=== PATIENT | male | born 1975 | race Caucasian/White ===

== ENCOUNTER 2021-03-28 10:32 | Emergency (ER) | payer MEDICAID, SELFPAY ==
--- NOTE | ~2021-03-28 | XR_ITS ---
EXAMINATION: BILATERAL FOOT X-RAY CLINICAL INFORMATION: Bilateral foot pain and discoloration. History of diabetes. COMPARISON: None TECHNIQUE: 3 views of each foot FINDINGS: Right: No fracture or dislocation is seen. There is mild hallux valgus deformity and degenerative change at the first MTP joint. There are mild degenerative changes of the talonavicular joint. Joint spaces are otherwise normal. There are calcaneal spurs. There may be a soft tissue calcification of the plantar fascia. Left: Bone alignment is normal. No acute fracture or dislocation is seen. There may be old trauma to the proximal phalanx of the great toe. There is a bony protuberance projecting off the medial distal phalanx of the great toe questionable for bony exostosis. The joint spaces are normal. There are calcaneal spurs. There is soft tissue calcification in the plantar fascia plantar fasciitis. XR/XR foot RT 2V IMPRESSION: Bilateral calcaneal spurs and soft tissue calcification in the plantar fascia suggestive of plantar fasciitis. Degenerative changes and hallux valgus deformity at the right first MTP joint. Question old trauma to the proximal phalanx of the left great toe and distal phalanx bony exostosis.
--- NOTE | ~2021-03-28 | XR_ITS ---
EXAMINATION: BILATERAL FOOT X-RAY CLINICAL INFORMATION: Bilateral foot pain and discoloration. History of diabetes. COMPARISON: None TECHNIQUE: 3 views of each foot FINDINGS: Right: No fracture or dislocation is seen. There is mild hallux valgus deformity and degenerative change at the first MTP joint. There are mild degenerative changes of the talonavicular joint. Joint spaces are otherwise normal. There are calcaneal spurs. There may be a soft tissue calcification of the plantar fascia. Left: Bone alignment is normal. No acute fracture or dislocation is seen. There may be old trauma to the proximal phalanx of the great toe. There is a bony protuberance projecting off the medial distal phalanx of the great toe questionable for bony exostosis. The joint spaces are normal. There are calcaneal spurs. There is soft tissue calcification in the plantar fascia plantar fasciitis. XR/XR foot LT 2V IMPRESSION: Bilateral calcaneal spurs and soft tissue calcification in the plantar fascia suggestive of plantar fasciitis. Degenerative changes and hallux valgus deformity at the right first MTP joint. Question old trauma to the proximal phalanx of the left great toe and distal phalanx bony exostosis.
[2021-03-28 11:31] VITALS: BP 147/91; PULSE 85; RESP 16; TEMP 35.5; O2SAT 98; BMI 29.0
[2021-03-28 12:35] LABS: MANUAL DIFF FLAG NO
[2021-03-28 12:37] LABS: Basophils Percent Auto 0.6 % (0-2); Eosinophils Percent Auto 0.6 % (0-4); Hemoglobin 14.4 g/dl (14.0-18.0); Imm Gran Abs Auto 0.07 X10*3/uL (0.00-0.03); Imm Gran Pct Auto 1.1 % (0.0-0.4); Lymphocytes Absolute Auto 2.8 X10*3/uL (1.2-4.9); Lymphocytes Percent Auto 43.1 % (20-40); Mean Corpuscular HGB Conc 32.7 g/dl (31.0-36.0); Mean Corpuscular Hemoglobin 29.7 pg (27.0-33.0); Mean Corpuscular Volume 90.7 fL (80.0-98.0); Mean Platelet Volume 9.1 fL (9.4-12.4); Monocytes Absolute Auto 0.7 X10*3/uL (0.1-1.2); Monocytes Percent Auto 10.7 % (2-11); Neutrophils Absolute Auto 2.8 x10*3/uL (2.0-8.3); Neutrophils Percent Auto 43.9 % (45-73); Platelet Count 252 X10*3/uL (160-400); Red Blood Count 4.85 X10*6/uL (4.60-5.80); Red Cell Distribution Width 14.5 % (11.0-16.0); White Blood Count 6.4 X10*3/uL (4.8-10.8)
[2021-03-28 12:52] LABS: Anion Gap 12 (12-20); Blood Urea Nitrogen 9 mg/dL (9-16); Calcium 9.1 mg/dL (8.4-10.2); Carbon Dioxide 24 mmol/L (22-29); Chloride 109 mmol/L (96-108); Creatinine Clr Calc Pharmacy 156.6; Estimated Glomerular Filt Rate > 60; Glucose Random 75 mg/dL (60-115); Potassium 4.3 mmol/L (3.3-5.1); Sodium 141 mmol/L (135-145)
--- NOTE | 2021-03-28 13:51 | ED_ITS ---
HPI - Extremity Problem General Chief complaint: Extremity Problem Stated complaint: Legs/feet turning black Time Seen by Provider: 03/28/21 13:40 Source: patient Mode of arrival: ambulatory Limitations: no limitations History of Present Illness HPI Narrative: pt presented to the Ed c/o discoloration feet ongoing for Months,he is from [place] visiting the area,hx of schizophrenia,denies fever/chills Complaint: extremity pain Onset (ago): week(s) Location: lower extremity and other (feet) Radiation: none Relieving factors: nothing Related Data Allergies Allergy/AdvReac Type Severity Reaction Status Date / Time chlorpheniramine Allergy Unknown Verified 03/28/21 11:30 [From [facility]] codeine [From [facility]] Allergy Unknown Verified 03/28/21 11:30 dihydrocodeine Allergy Unknown Verified 03/28/21 11:30 [From [facility]] phenylephrine Allergy Unknown Verified 03/28/21 11:30 [From [facility]] pseudoephedrine Allergy Unknown Verified 03/28/21 11:30 [From [facility]] Review of Systems Review of Systems: Yes all other systems are reviewed and are negative Eyes: Eyes: Reports no additional eye complaints Cardiovascular: Cardiovascular: Reports no additional cardiovascular compla ints Gastrointestinal: Gastrointestinal: Reports no additional gastrointestinal complaints Neurologic: Reports system reviewed and no additional complaints, except as documented PMFSH Past Medical History Medical History Diabetes Psychiatric disorder Social History Social History Patient Tobacco Use Status: Current everyday Tobacco user Use of substances other than those prescribed or required for medical reasons: Yes Advance Directives: No Advance Directives Information Provided: No Physical Exam Vital Signs: Vital Signs: Last Vital Signs Temp 96 F L 03/28/21 11:31 Pulse 87 03/28/21 14:11 Resp 18 03/28/21 14:11 BP 140/87 H 03/28/21 14:11 Pulse Ox 95 03/28/21 14:11 BMI result Body Mass Index 29.0 Const: General: cooperative, comfortable, no acute distress and well developed Nutritional Appearance: average body habitus Orientation/consciousness: oriented to person and patient oriented x3 HENMT: Other: wnl Face and sinus: Yes normal facial exam Neck: Neck: Yes normal visual inspection and Yes full ROM Chest: Chest palpation & inspection: normal inspection of the chest Resp: Effort & Inspection: normal respiratory effort Auscultation: clear to auscultation bilaterally Cardio: Jugular venous distension: no JVD Rate: regular rate GI: Inspection: Yes normal to inspection Palpation (GI): Soft to palpation Neuro: General: oriented to person and patient oriented x3 Extrem: Other: good pulses by doppler ,good peditial puls and dorsalis pedis,varicous vein present MDM - Extremity (Nontraumatic) MDM Narrative Medical decision making narrative: The patient presented with discoloration of the feet the ongoing in 4 weeks, I examine the feet the in the ER as good pedal pulses bilaterally, he does have some varicous vein, I think the discoloration is secondary to the varicose vein. His labs are within normal limit. I think it is reasonable to discharge the patient trauma he come follow-up by his primary care physician, patient is comfortable with the plan at this point will discharge the patient home Lab Data Result diagrams: 03/28/21 12:29 03/28/21 12:29 Labs: Lab Results 03/28/21 03/28/21 03/28/21 Range/Units 12:29 12:29 13:53 WBC 6.4 (4.8-10.8) X10*3/uL RBC 4.85 (4.60-5.80) X10*6/uL Hgb 14.4 (14.0-18.0) g/dl Hct 44.0 (42.0-52.0) % MCV 90.7 (80.0-98.0) fL MCH 29.7 (27.0-33.0) pg MCHC 32.7 (31.0-36.0) g/dl RDW 14.5 (11.0-16.0) % Plt Count 252 (160-400) X10*3/uL MPV 9.1 L (9.4-12.4) fL Immature Gran % (Auto) 1.1 H (0.0-0.4) % Neut % (Auto) 43.9 L (45-73) % Lymph % (Auto) 43.1 H (20-40) % [place] % (Auto) 10.7 (2-11) % Eos % (Auto) 0.6 (0-4) % Baso % (Auto) 0.6 (0-2) % Lymph # (Auto) 2.8 (1.2-4.9) X10*3/uL [place] # (Auto) 0.7 (0.1-1.2) X10*3/uL Eos # (Auto) 0.0 (0.0-0.4) X10*3/uL Baso # (Auto) 0.0 (0.0-0.2) X10*3/uL Abs Immat Gran (auto) 0.07 H (0.00-0.03) X10*3/uL Absolute Neuts (auto) 2.8 (2.0-8.3) x10*3/uL Absolute Nucleated RBC 0.000 (0.0-0.012) X10*3/uL Nucleated RBC % (auto) 0.0 (0.0-0.2) /100WBC Sodium 141 (135-145) mmol/L Potassium 4.3 (3.3-5.1) mmol/L Chloride 109 H (96-108) mmol/L Carbon Dioxide 24 (22-29) mmol/L Anion Gap 12 (12-20) BUN 9 (9-16) mg/dL Creatinine 0.74 (0.5-1.4) mg/dL Estim Creat Clear Calc 156.6 Estimated GFR > 60 POC Glucose 77 (60-115) mg/dL Random Glucose 75 (60-115) mg/dL Calcium 9.1 (8.4-10.2) mg/dL Imaging Data feet xray: Radiologist's impression: here may be a soft tissue calcification of the plantar fascia. Left: Bone alignment is normal. No acute fracture or dislocation is seen. There may be old trauma to the proximal phalanx of the great toe. There is a bony protuberance projecting off the medial distal phalanx of the great toe questionable for bony exostosis. The joint spaces are normal. There are calcaneal spurs. There is soft tissue calcification in the plantar fascia plantar fasciitis. XR/XR foot LT 2V IMPRESSION: Bilateral calcaneal spurs and soft tissue calcification in the plantar fascia suggestive of plantar fasciitis. Degenerative changes and hallux valgus deformity at the right first MTP joint. Question old trauma to the proximal phalanx of the left great toe and distal phalanx bony exostosis. Dictated By: Bridgett Durán MD Discharge Plan Discharge Clinical Impression: Varicose eczema Patient Disposition: Home, Self-Care Instructions: Stasis Dermatitis (ED) Additional Instructions: follow up with Primary care Doctor return if worse
[2021-03-28 13:58] LABS: Glucose, Whole Blood 77 mg/dL (60-115)
[2021-03-28 14:11] VITALS: BP 140/87; PULSE 87; RESP 18; O2SAT 95
== END 2021-03-28 14:00 | disposition home or self-care (01) ==
PROVIDERS: Emergency Provider Emergency Medicine
DX: I83.12 Varicose veins of left lower extremity with inflammation (principal); I83.11 Varicose veins of right lower extremity with inflammation; M79.672 Pain in left foot; M79.671 Pain in right foot; E11.9 Type 2 diabetes mellitus without complications; F17.200 Nicotine dependence, unspecified, uncomplicated
CPT/HCPCS: 36415; 73620; 80048; 82947; 85025; 99283; 99284